=== PATIENT | male | born 1955 | race Caucasian/White ===

== ENCOUNTER 2020-09-07 10:35 | Emergency (ER) | payer OTHER ==
[2020-09-07] MEDS ORDERED: LIDOCAINE 1% MPF 5 ML VIAL ONE (11:25)
[2020-09-07] MEDS ORDERED: BUPIVACAINE 0.5% PF 10 ML VIAL ONE (11:25)
[2020-09-07] MEDS ORDERED: TETANUS & DIPHTHERIA TOX,ADULT 0.5 ML VIAL ONE (11:25)
--- NOTE | 2020-09-07 12:13 | RAD REPORT ---
EXAM DESCRIPTION: RAD -Hand Left 3 View - 09/07/2020 11:33 am CLINICAL HISTORY: Left hand pain status post injury FINDINGS: Avulsion fracture involves the distal aspect of the third distal phalanx. No dislocation. 4 millimeter round metallic structure is present within the soft tissues of the hand. Old fracture fifth metacarpal
--- NOTE | 2020-09-07 12:50 | ER ---
Nurse's Notes [facility] Name: Josue Stevens Age: 65 yrs Sex: Male : 1955 Arrival Date: 09/07/2020 Time: 10:39 Bed 12 Private MD: Diagnosis: Presentation: 09/07 10:55 Chief complaint: Patient states: Cut my 3rd digit of L hand with a table saw 45 minutes ca1 [employer]. Bleeding controlled. Coronavirus screen: Client denies travel out of the [place] in the last 14 days. At this time, the client does not indicate any symptoms associated with coronavirus-19. Ebola Screen: Patient negative for fever greater than or equal to 101.5 degrees Fahrenheit, and additional compatible Ebola Virus Disease symptoms Patient denies exposure to infectious person. Patient denies travel to an Ebola-affected area in the 21 days before illness onset. No symptoms or risks identified at this time. Initial Sepsis Screen: Does the patient meet any 2 criteria? No. Patient's initial sepsis screen is negative. Does the patient have a suspected source of infection? No. Patient's initial sepsis screen is negative. Risk Assessment: Do you want to hurt yourself or someone else? Patient reports no desire to harm self or others. Onset of symptoms was September 07, 2020. 10:55 Method Of Arrival: Ambulatory ca1 10:55 Acuity: DILLON 4 ca1 Historical: - Allergies: 10:58 No Known Allergies; ca1 - Home Meds: 10:58 lisinopril 5 mg Oral tab 1 tab once daily [Active]; ca1 - PMHx: 10:58 Hypertension; ca1 - PSHx: 10:58 kidney surgery; colon surgery; ca1 - Immunization history:: Last tetanus immunization: < 5 years ago. - Social history:: Smoking status: Patient denies any tobacco usage or history of. Screenin:17 Abuse screen: Denies threats or abuse. Denies injuries from another. Nutritional ld1 screening: No deficits noted. Tuberculosis screening: No symptoms or risk factors identified. Fall Risk None identified. Assessment: 11:15 General: Appears in no apparent distress. uncomfortable, Behavior is calm, cooperative, ld1 appropriate for age. Pain: Complains of pain in dorsal aspect of distal phalanx of left middle finger, dorsal aspect of middle phalanx of left middle finger and left middle fingernail Pain does not radiate. Pain currently is 7 out of 10 on a pain scale. Quality of pain is described as throbbing, Pain began 2 hours ago. Is continuous. Neuro: Level of Consciousness is awake, alert, obeys commands, Oriented to person, place, time, situation. Cardiovascular: Capillary refill < 3 seconds Patient's skin is warm and dry. Respiratory: Airway is patent Respiratory effort is even, unlabored, Respiratory pattern is regular, symmetrical. GI: Abdomen is flat, non-distended. : No signs and/or symptoms were reported regarding the genitourinary system. EENT: No signs and/or symptoms were reported regarding the EENT system. Derm: No signs and/or symptoms reported regarding the dermatologic system. Musculoskeletal: Reports numbness in dorsal aspect of distal phalanx of left middle finger, dorsal aspect of middle phalanx of left middle finger and left middle fingernail. Injury Description: Laceration sustained to dorsal aspect of distal phalanx of left middle finger, dorsal aspect of middle phalanx of left middle finger and left middle fingernail moderate bleeding noted at this time. Pt states he was working on his table saw and it was not properly secured. Patient's hand slipped and was injured by table saw. 11:57 Reassessment: Patient appears in no apparent distress at this time. No changes from ld1 previously documented assessment. Patient and/or family updated on plan of care and expected duration. Pain level reassessed. Patient is alert, oriented x 3, equal unlabored respirations, skin warm/dry/pink. 12:48 Reassessment: Pt left without notice. Yelled "I have been waiting for over 35 minutes ld1 and I am sick of it.". Vital Signs: 10:55 BP 154 / 108; Pulse 58; Resp 16 S; Temp 97.1(TE); Pulse Ox 98% on R/A; Weight 65.77 kg ca1 (R); Height 5 ft. 9 in. (175.26 cm) (R); 11:17 BP 162 / 110; Pulse 84; Resp 18; Temp 97.5(TE); Pulse Ox 100% on R/A; Pain 7/10; ld1 11:57 BP 155 / 104; Pulse 82; Resp 18; Pulse Ox 100% on R/A; ld1 10:55 Body Mass Index 21.41 (65.77 kg, 175.26 cm) ca1 ED Course: 10:39 Patient arrived in ED. ds1 10:56 [facility] kb 10:56 Yoandy Tyson MD is Attending Physician. kb 10:57 Triage completed. ca1 10:58 Arm band placed on right wrist. ca1 11:04 Kristyn Simon, RN is Primary Nurse. ld1 11:17 Patient has correct armband on for positive identification. Bed in low position. Call ld1 light in reach. Side rails up X 1. Pulse ox on. NIBP on. Door closed. Noise minimized. Warm blanket given. 11:33 Hand Left 3 View XRAY In Process Unspecified. 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 Exp: ld1 10/13/2021. Lot #: [id number]. } Route: IM; Site: left deltoid; 11:20 Follow up: Response: No adverse reaction ld1 11:50 Drug: Lidocaine (1 %) 1 vials Volume: 5 ml; Route: Infiltration; ld1 12:10 Follow up: Response: No adverse reaction ld1 11:50 Drug: Marcaine (bupivacaine) (0.5 %) 1 vials Volume: 10 ml; Route: Infiltration; ld1 12:10 Follow up: Response: No adverse reaction ld1 Outcome: 12:50 Patient left the ED. ld1 Signatures: Dispatcher [employer] EDMS Ngoc Maloney FNP-C FNP-Viridiana Ash ds1 Coleen Jeffers RN RN ca1 Kristyn Simon, JOSE RN ld1
--- NOTE | 2020-09-07 12:50 | EDPHYS ---
Physician Documentation [facility] Name: Josue Stevens Age: 65 yrs Sex: Male : 1955 Arrival Date: 09/07/2020 Time: 10:39 Bed 12 Private MD: ED Physician Yoandy Tyson HPI: 09/07 13:44 This 65 yrs old Male presents to ER via Ambulatory with complaints of Finger kb Injury. 13:44 The patient has a laceration related to: doing carpentry, from a power saw, occurred at kb home, and there are no complicating factors. The injury was accidental. The laceration(s) is(are) located on the dorsal aspect of distal phalanx of left middle finger and palmar aspect of distal phalanx of left middle finger. Onset: The symptoms/episode began/occurred just prior to arrival. Associated signs and symptoms: The patient has no apparent associated signs or symptoms. The patient has not experienced similar symptoms in the past. The patient has not recently seen a physician. Pt reports he caught his finger in a table saw this morning. . Historical: - Allergies: 10:58 No Known Allergies; ca1 - Home Meds: 10:58 lisinopril 5 mg Oral tab 1 tab once daily [Active]; ca1 - PMHx: 10:58 Hypertension; ca1 - PSHx: 10:58 kidney surgery; colon surgery; ca1 - Immunization history:: Last tetanus immunization: < 5 years ago. - Social history:: Smoking status: Patient denies any tobacco usage or history of. ROS: 13:41 Constitutional: Negative for fever, chills, and weight loss, Neuro: Negative for kb headache, weakness, numbness, tingling, and seizure. 13:41 MS/extremity: Positive for injury or acute deformity, laceration, pain, of the dorsal aspect of distal phalanx of left middle finger and palmar aspect of distal phalanx of left middle finger. 13:44 Skin: Positive for laceration(s), of the dorsal aspect of distal phalanx of left middle kb finger and palmar aspect of distal phalanx of left middle finger. Exam: 13:41 Constitutional: This is a well developed, well nourished patient who is awake, alert, kb and in no acute distress. Respiratory: Respirations even and unlabored. No increased work of breathing, no retractions or nasal flaring. MS/ Extremity: Pulses equal, no cyanosis. Neurovascular intact. Full, normal range of motion. Neuro: Awake and alert, GCS 15, oriented to person, place, time, and situation. Moves all extremities. Normal gait. Psych: Awake, alert, with orientation to person, place and time. Behavior, mood, and affect are within normal limits. 13:41 Skin: injury, avulsion(s), a small avulsion and lacerations noted to tip of left middle finger . Vital Signs: 10:55 BP 154 / 108; Pulse 58; Resp 16 S; Temp 97.1(TE); Pulse Ox 98% on R/A; Weight 65.77 kg ca1 (R); Height 5 ft. 9 in. (175.26 cm) (R); 11:17 BP 162 / 110; Pulse 84; Resp 18; Temp 97.5(TE); Pulse Ox 100% on R/A; Pain 7/10; ld1 11:57 BP 155 / 104; Pulse 82; Resp 18; Pulse Ox 100% on R/A; ld1 10:55 Body Mass Index 21.41 (65.77 kg, 175.26 cm) ca1 Procedures: 11:53 Nerve block: of palmar aspect of proximal phalanx of left middle finger Medication: kb Lidocaine 1% without epinephrine Marcaine 0.5%, Amount: 6 mls were injected, Effect: the patient has resolution of the pain, Set up for procedure. Performed by Ngoc WEEKS Patient tolerated well. MDM: 10:56 Patient medically screened. kb 11:52 Data reviewed: vital signs, nurses notes. Data interpreted: Pulse oximetry: on room air kb is 100 %. Interpretation: normal. 13:39 ED course: x-ray obtained, digital block administered and pt's finger was soaking in kb betadine/saline mixture. Nurse informed me that pt became upset about wait time and stormed out while I was in another room. . 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 Exp: ld1 10/13/2021. Lot #: [id number]. } Route: IM; Site: left deltoid; 11:20 Follow up: Response: No adverse reaction ld1 11:50 Drug: Lidocaine (1 %) 1 vials Volume: 5 ml; Route: Infiltration; ld1 12:10 Follow up: Response: No adverse reaction ld1 11:50 Drug: Marcaine (bupivacaine) (0.5 %) 1 vials Volume: 10 ml; Route: Infiltration; ld1 12:10 Follow up: Response: No adverse reaction ld1 Disposition: 18:41 Co-signature as Attending Physician, Yoandy Tyson MD. Chart complete. ma2 Disposition: 09/07/20 12:50 Patient left the facility after being seen by provider. - Patient left due to wait time. Signatures: Dispatcher [employer] Ngoc Chairez, MICKY PHILLIPP-CkYoandy Thorne MD MD ma2 Coleen Jeffers RN JOSE ca1 Kristyn Simon RN RN ld1
[2020-09-07 12:57] VITALS: TEMP 97.5; O2SAT 100
[2020-09-07 12:59] VITALS: BP 155/104
== END 2020-09-07 12:50 | disposition left against medical advice (07) ==
LOC: ER 10:35
PROC: 3E0T3BZ Introduction of Anesthetic Agent into Peripheral Nerves and Plexi, Percutaneous Approach (ICD-10-PCS; principal; 2020-09-07)
DX: S61.213A Laceration without foreign body of left middle finger without damage to nail, initial encounter (principal); W31.2XXA Contact with powered woodworking and forming machines, initial encounter; I10 Essential (primary) hypertension; Z23 Encounter for immunization; Z53.20 Procedure and treatment not carried out because of patient's decision for unspecified reasons
CPT/HCPCS: 90471; 90714; 99283